=== PATIENT | female | born 1965 | race Caucasian/White ===

== ENCOUNTER 2023-08-18 09:17 | Day surgery (SDC) | payer OTHER ==
[~2023-08-18] VITALS: Ht 167.6 cm; Wt 82.6 kg
[~2023-08-18 09:17] MED LIST: NS 1,000 ML IV ONE
[2023-08-18] MEDS ORDERED: propofoL 200 MG/20 ML VIAL As Ordered ONE ×2 (10:05→10:28)
[2023-08-18 10:42] VITALS: BP 128/92; TEMP 96.3; O2SAT 98
== END 2023-08-18 10:50 | disposition home or self-care (01) ==
LOC: M OPP 09:17
PROVIDERS: ATTEND Internal Medicine Gastroenterology
DX: Z12.11 Encounter for screening for malignant neoplasm of colon (principal); Z80.0 Family history of malignant neoplasm of digestive organs; K64.0 First degree hemorrhoids